=== PATIENT | female | born 1985 | race Caucasian/White ===

== ENCOUNTER 2018-10-10 16:59 | Emergency (ER) | payer SELFPAY ==
[~2018-10-10] VITALS: Ht 162.6 cm; Wt 70.0 kg
[2018-10-10] MEDS ORDERED: IBUPROFEN 600MG TABLET PO ONE (18:15)
[2018-10-10] MEDS ORDERED: BACITRACIN ZINC OINT UDPKT TOP ONE (18:30)
[2018-10-10] MEDS ORDERED: TETANUS, DIPHTHERIA, PERTUSSIS VAC/PF 0.5ML (>7YR OLD) IM ONE (18:30)
[2018-10-10 19:13] VITALS: BP 132/69
== END 2018-10-10 19:14 | disposition home or self-care (01) ==
LOC: ER 16:59
DX: S20.212A Contusion of left front wall of thorax, initial encounter (principal); S80.212A Abrasion, left knee, initial encounter; S80.02XA Contusion of left knee, initial encounter; V43.62XA Car passenger injured in collision with other type car in traffic accident, initial encounter; Y93.89 Activity, other specified; Y92.488 Other paved roadways as the place of occurrence of the external cause
CPT/HCPCS: 71045; 81025; 90471; 90715; 99283